=== PATIENT | female | born 1985 | race Caucasian/White ===

== ENCOUNTER 2018-05-28 21:32 | Outpatient (REF) | payer OTHER, SELFPAY ==
[2018-05-28 21:55] LABS: C-Reactive Protein 0.77 mg/dL (0.0-0.3)
== END 2018-05-28 21:52 ==
LOC: NCHCN 21:32
PROVIDERS: PCP Family Medicine; Visit Provider Nurse Practitioner Family
DX: N95.1 Menopausal and female climacteric states (principal); R61 Generalized hyperhidrosis
CPT/HCPCS: 86140

== ENCOUNTER 2021-02-22 12:38 | Outpatient (REF) | payer OTHER, SELFPAY ==
--- NOTE | 2021-02-22 10:30 | PAPFT_PTH ---
PATIENT: YeeAugust LOC: [facility] U#:[id number] AGE/SX: 35/F ROOM: RE02/22/[address]: Nini Mai : 1985 BED: DIS: 02/22/2021 SPEC #: [id number] RECD: 02/23/21 13:16 STATUS: GERMAINE RENandini #: [id number] TED: 02/22/21 10:[address]: Nini Mai DEPT: [facility] Cytology RECD BY: Brittanie Preston ENTERED: 02/23/21 13:17 SP TYPE: PAPFT OTHR DR: Aylin Gan Tissues: 1 - CX/ENDOCX FOR PAP SMEARS Procedures: PAP THIN PREP/[facility] Screening HPV DNA PROBE Comments: [id number]
--- OUTSIDE RECORDS SUMMARY | 2021-02-22 12:41 | XMS_ITS ---
:1985 Author Organization [facility] Address [address] [place] [address], [address] 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 [place], [place] and BV 6 16.10 [address] [facility] [address] [place] [address], [address] [place] [address] [facility] [address] [place] [address], [address] [place] [address] [facility] [address] [place] [address], [address], Aravind holin gland abscess [address] [place], [place] [address] [facility] [address] [place] [address], [address], Aravind holin gland abscess [address] [place], [place] [address] [facility] [address] Aug, [place] [address] 616.3 [facility] [address], [address], Aravind holin gland abscess [address] [place], [place] [address] [facility] [address] [facility], [address] Aug, Aravind holin gland abscess [address] [place], [place] [address] ; BV 616.10 and [place] [address] present v45.51 IMMUNIZATIONS No Known Immunizations SOCIAL HISTORY Qualifiers Date Current Smoker REASON FOR REFERRAL FUNCTIONAL STATUS PLAN OF CARE Activity Details Follow Up prn Reason: VITAL SIGNS Temperature 98.9 degrees Fahrenheit 2011-10-01 Height 5'2 stated in 2011-09-18 Weight 173 stated lbs 2011-09-18 Blood pressure systolic 145 2014-01-27 Blood pressure diastolic 90 2014-01-27 MEDICATIONS Medication Instructions Dosage Frequency Start End Date Duration Stat us Date Mirena Active Advil Active Flagyl 500 MG Orally Two times 1 tablet 12h Jan, 7 days Active a day 2013 Tylenol Not-Taking PROCEDURES Procedure Date Ordered Result Body Site ASSAY OF BODY FLUID ACIDITY January 27, 2014 Wet smear January 27, 2014 Wet smear Sep 03, 2011 Surgery for vulva lesion Sep 20, 2011 RESULTS No Results REASON FOR VISIT poss jose luis cyst, again, jose luis cyst may be back - see previous tele note, Had Marsupilization in [place] by Dr. Cowan 08/2011, Cyst has been coming and going most of this year, having diffculty urinating because of it, last night had a "gush" from the cyst. Sees a "little red ball" there when sitting on toilet, ever since marsupilization, has a brownish/yellow disch - increasing this past year, poss jose luis, poss. misstatement, e f/u 2wk - Marsupialization Jose Luis Cyst 09/20/11 - feeling much better, post-op marsupialization - "I'm not doing that great....not going as well as it should be...not healing, sore, red-ball", Also thinks she has a yeast infection from abx - taking two types given in hospital, Jose Luis abscess re-filled a few days after last visit - currently "hurts", Consult for bartholin cyst/abscess, leaking a lot brown, mucousy, malodorous d/c since yesterday. Now smaller, but uncomfortable., jose luis cyst drained 03/2011 Insurance Providers [facility] Member Patient Patient Patient Patient Patient Subscriber Subscriber Subscriber Group Insurance Plan Plan Plan Plan ID Relationship Address Phone Name Date of ID Name Date of No Type Insurance Insurance Insurance Coverage to Subscriber Address Phone Name Dates [place] [phone] [place] self August [id number] [facility] [address] [place] [address] [place] [address] MEDICAID [phone] MEDICAID self September 12 [id number] [facility] [address] [place] [address]
[2021-02-22 22:17] LABS: ALT 39 U/L (14-59); AST 24 U/L (15-37); Alkaline Phosphatase 72 U/L (46-116); Anion Gap 12.3 mmol/L (3-11); BUN 14 mg/dL (7-18); Bilirubin, Total 0.4 mg/dL (0.2-1.0); CO2 23.7 mmol/L (21.0-32.0); CREATININE 0.8 mg/dL (0.55-1.02); Calcium 9.3 mg/dL (8.5-10.1); Calculated LDL 90 mg/dL (<100); Chloride 106 mmol/L (98-107); Cholesterol 168 mg/dL (<200); Glucose 99 mg/dL (74-106); HDL Cholesterol 53 mg/dL (40-60); Potassium 4.4 mmol/L (3.5-5.1); Sodium 142 mmol/L (136-145); Total Protein 7.1 g/dL (6.4-8.2); Triglyceride 127 mg/dL (<150)
== END 2021-02-22 12:39 | disposition home or self-care (01) ==
LOC: NCHCN 12:38
PROVIDERS: PCP Family Medicine; Visit Provider Nurse Practitioner Family
DX: Z00.00 Encounter for general adult medical examination without abnormal findings (principal); Z13.220 Encounter for screening for lipoid disorders; Z12.4 Encounter for screening for malignant neoplasm of cervix; Z11.51 Encounter for screening for human papillomavirus (HPV); Z01.419 Encounter for gynecological examination (general) (routine) without abnormal findings
CPT/HCPCS: 80053; 80061; 88142; 87624

== ENCOUNTER 2022-03-13 13:47 | Outpatient (REF) | payer OTHER, SELFPAY ==
[2022-03-16 10:36] LABS: COVID-19 RT-PCR UVMMC Result Negative (Negative)
== END 2022-03-13 13:48 | disposition home or self-care (01) ==
LOC: NCHCN 13:47
PROVIDERS: PCP Family Medicine; Visit Provider Nurse Practitioner Family
DX: Z20.822 Contact with and (suspected) exposure to COVID-19 (principal); J06.9 Acute upper respiratory infection, unspecified
CPT/HCPCS: U0003

== ENCOUNTER 2022-05-09 17:39 | Outpatient (REF) | payer OTHER, SELFPAY ==
[2022-05-09 15:23] LABS: Abs Immature Grans 0.03 10^3/uL (0.0-0.06); Absolute Basophil Count 0.04 10^3/uL (0.0-0.2); Absolute Eosinophil Count 0.17 10^3/uL (0.0-0.7); Absolute Lymphocyte Count 1.55 10^3/uL (1.2-3.4); Absolute Monocyte Count 0.48 10^3/uL (0.1-0.8); Absolute Neutrophil Count 6.61 10^3/uL (1.2-6.7); Basophils % 0.5; Eosinophils % 1.9; HCT 45.4 % (36.0-46.0); HGB 15.4 g/dL (11.2-15.7); Immature Grans % 0.3; Lymphocytes % 17.5; MCH 32.3 pg (27.0-33.0); MCHC 33.9 % (32.0-36.0); MCV 95 fL (80-95); MPV 12.4 fL (8.0-11.0); Monocytes % 5.4; Neutrophils % 74.4; Platelet Count 227 10^3/uL (130-400); RBC 4.77 10^6/uL (3.93-5.22); RDW 12.5 % (11.7-14.6); RDW-SD 43.8 fL; WBC 8.88 10^3/uL (4.4-10.8)
[2022-05-09 16:33] LABS: ALT 22 U/L (14-59); AST 15 U/L (15-37); Albumin 3.8 g/dL (3.4-5.0); Alkaline Phosphatase 84 U/L (46-116); BUN 16 mg/dL (7-18); Bilirubin, Total 0.2 mg/dL (0.2-1.0); CREATININE 0.8 mg/dL (0.55-1.02); Calcium 9.3 mg/dL (8.5-10.1); Calculated LDL 92 mg/dL (<100); Chloride 104 mmol/L (98-107); Cholesterol 155 mg/dL (<200); Estimated GFR 96.66 (mL/min/1.73m2); Glucose 95 mg/dL (74-106); HDL Cholesterol 46 mg/dL (40-60); Potassium 4.7 mmol/L (3.5-5.1); Sodium 139 mmol/L (136-145); TSH (W/Ref FT4) 1.08 uIU/mL (0.36-3.74); Total Protein 7.2 g/dL (6.4-8.2); Triglyceride 88 mg/dL (<150)
[2022-05-09 16:53] LABS: Hemoglobin A1C 5.4 % (<5.7)
== END 2022-05-09 17:40 | disposition home or self-care (01) ==
LOC: NCHCN 17:39
PROVIDERS: PCP Family Medicine; Visit Provider Nurse Practitioner Family
DX: Z00.00 Encounter for general adult medical examination without abnormal findings (principal)
CPT/HCPCS: 80053; 80061; 83036; 84443; 85025

== ENCOUNTER 2022-10-31 09:06 | Outpatient (REF) | payer SELFPAY ==
[2022-10-31 14:34] LABS: Anion Gap 8.3 mmol/L (3-11); BUN 16 mg/dL (7-18); CO2 26.7 mmol/L (21.0-32.0); CREATININE 0.8 mg/dL (0.55-1.02); Calcium 9.4 mg/dL (8.5-10.1); Chloride 108 mmol/L (98-107); Estimated GFR 96.66 (mL/min/1.73m2); Glucose 106 mg/dL (74-106); Potassium 5.1 mmol/L (3.5-5.1); Sodium 143 mmol/L (136-145)
== END 2022-10-31 09:07 | disposition home or self-care (01) ==
LOC: NCHCN 09:06
PROVIDERS: PCP Family Medicine; Visit Provider Family Medicine
DX: Z00.00 Encounter for general adult medical examination without abnormal findings (principal); R03.0 Elevated blood-pressure reading, without diagnosis of hypertension; E66.8 Other obesity
CPT/HCPCS: 80048

== ENCOUNTER 2024-02-23 18:34 | Outpatient (REF) | payer BC, SELFPAY ==
[2024-02-23 15:35] LABS: Anion Gap 8.4 mmol/L (3-11); BUN 20 mg/dL (7-18); CO2 27.6 mmol/L (21.0-32.0); CREATININE 0.8 mg/dL (0.55-1.02); Calcium 9.3 mg/dL (8.5-10.1); Chloride 105 mmol/L (98-107); Estimated GFR 95.46 (mL/min/1.73m2); Glucose 115 mg/dL (74-106); Potassium 4.5 mmol/L (3.5-5.1); Sodium 141 mmol/L (136-145)
== END 2024-02-23 18:35 | disposition home or self-care (01) ==
LOC: NCHCN 18:34
PROVIDERS: PCP Family Medicine; Visit Provider Family Medicine
DX: E87.6 Hypokalemia (principal)
CPT/HCPCS: 80048

== ENCOUNTER 2024-08-05 08:56 | Outpatient (REF) | payer BC, SELFPAY ==
[2024-08-05 14:38] LABS: Abs Immature Grans 0.03 10^3/uL (0.0-0.06); Absolute Basophil Count 0.06 10^3/uL (0.0-0.2); Absolute Eosinophil Count 0.33 10^3/uL (0.0-0.7); Absolute Lymphocyte Count 1.97 10^3/uL (1.2-3.4); Absolute Neutrophil Count 6.58 10^3/uL (1.2-6.7); Basophils % 0.6 %; Eosinophils % 3.5 %; HCT 43.3 % (36.0-46.0); HGB 13.9 g/dL (11.2-15.7); Immature Grans % 0.3 %; MCH 31.4 pg (27.0-33.0); MCHC 32.1 % (32.0-36.0); MCV 98 fL (80-95); Monocytes % 4.3 %; Neutrophils % 70.3 %; Platelet Count 273 10^3/uL (130-400); RBC 4.43 10^6/uL (3.93-5.22); RDW 13.1 % (11.7-14.6); RDW-SD 46.9 fL; WBC 9.37 10^3/uL (4.4-10.8)
[2024-08-05 14:56] LABS: ALT 26 U/L (14-59); AST 27 U/L (15-37); Albumin 3.9 g/dL (3.4-5.0); Alkaline Phosphatase 73 U/L (46-116); Amylase 42 U/L (25-115); Anion Gap 8.2 mmol/L (3-11); BUN 14 mg/dL (7-18); Bilirubin, Total 0.23 mg/dL (0.2-1.0); CO2 25.8 mmol/L (21.0-32.0); Chloride 108 mmol/L (98-107); Estimated GFR 73.04 (mL/min/1.73m2); Glucose 102 mg/dL (74-106); Lipase 35 U/L (<78); Potassium 4.6 mmol/L (3.5-5.1); Sodium 142 mmol/L (136-145); Total Protein 7.2 g/dL (6.4-8.2)
[2024-08-05 15:17] LABS: Calcium 9.2 mg/dL (8.5-10.1)
== END 2024-08-05 08:57 | disposition home or self-care (01) ==
LOC: NCHCN 08:56
PROVIDERS: PCP Family Medicine; Visit Provider Family Medicine
DX: R10.9 Unspecified abdominal pain (principal)
CPT/HCPCS: 80053; 83690; 82150; 85025

== ENCOUNTER 2024-10-27 11:42 | Outpatient (REF) | payer OTHER, SELFPAY ==
[2024-10-27 15:56] LABS: HCT 47.1 % (36.0-46.0); HGB 15.2 g/dL (11.2-15.7); MCH 31.1 pg (27.0-33.0); MCHC 32.3 % (32.0-36.0); MCV 97 fL (80-95); MPV 12.9 fL (8.0-11.0); Platelet Count 266 10^3/uL (130-400); RBC 4.88 10^6/uL (3.93-5.22); RDW 12.2 % (11.7-14.6); RDW-SD 43.5 fL; WBC 8.81 10^3/uL (4.4-10.8)
[2024-10-27 17:42] LABS: ALT 36 U/L (14-59); AST 26 U/L (15-37); Albumin 4.6 g/dL (3.4-5.0); Alkaline Phosphatase 80 U/L (46-116); Amylase 48 U/L (25-115); BUN 15 mg/dL (7-18); Bilirubin, Total 0.31 mg/dL (0.2-1.0); CREATININE 1.1 mg/dL (0.55-1.02); Calcium 9.8 mg/dL (8.5-10.1); Chloride 105 mmol/L (98-107); Estimated GFR 65.14 (mL/min/1.73m2); Glucose 100 mg/dL (74-106); Lipase 30 U/L (<78); Potassium 4.6 mmol/L (3.5-5.1); Sodium 144 mmol/L (136-145); Total Protein 7.8 g/dL (6.4-8.2)
== END 2024-10-27 11:43 | disposition home or self-care (01) ==
LOC: NCHCN 11:42
PROVIDERS: PCP Family Medicine; Visit Provider Physician Assistant
DX: R10.9 Unspecified abdominal pain (principal)
CPT/HCPCS: 80053; 83690; 85027; 82150

== ENCOUNTER 2025-02-22 18:31 | Outpatient (REF) | payer OTHER, SELFPAY ==
[2025-02-22 21:19] LABS: ESR 6 mm/hr (0-20)
[2025-02-22 21:27] LABS: Abs Immature Grans 0.02 10^3/uL (0.0-0.06); HCT 42.1 % (36.0-46.0); HGB 13.7 g/dL (11.2-15.7); Immature Grans % 0.2 %; MCH 30.9 pg (27.0-33.0); MCHC 32.5 % (32.0-36.0); MCV 95 fL (80-95); MPV 12.1 fL (8.0-11.0); Platelet Count 277 10^3/uL (130-400); RBC 4.44 10^6/uL (3.93-5.22); RDW 12.8 % (11.7-14.6); RDW-SD 44.7 fL; WBC 8.58 10^3/uL (4.4-10.8)
[2025-02-22 21:32] LABS: C-Reactive Protein < 0.50 mg/dL (<or=0.5)
[2025-02-24 10:33] LABS: Lyme Ab w Rflx to Lyme Confirm Negative (Negative)
[2025-02-26 08:28] LABS: B. miyamotoi PCR Negative (Negative); Babesia divergens/MO-1 Negative (Negative); Ehrlichia muris eauclairensis Negative (Negative)
== END 2025-02-22 18:32 | disposition home or self-care (01) ==
LOC: NCHCN 18:31
PROVIDERS: PCP Family Medicine; Visit Provider Nurse Practitioner Family
DX: R29.810 Facial weakness (principal)
CPT/HCPCS: 85652; 87798; 85025; 86140; 86618

== ENCOUNTER 2025-03-28 16:25 | Outpatient (REF) | payer OTHER, SELFPAY ==
[2025-03-28 21:25] LABS: HCG Qual (Serum) Negative
[2025-03-28 21:44] LABS: TSH (W/Ref FT4) 2.49 uIU/mL (0.36-3.74)
[2025-03-30 12:21] LABS: Bacterial Vaginosis (BV) Positive (Negative); Candida glabrata Negative (Negative); Candida species group Negative (Negative)
== END 2025-03-28 16:26 | disposition home or self-care (01) ==
LOC: NCHCN 16:25
PROVIDERS: PCP Family Medicine; Visit Provider Family Medicine
DX: N94.6 Dysmenorrhea, unspecified (principal); R30.0 Dysuria; R82.89 Other abnormal findings on cytological and histological examination of urine
CPT/HCPCS: 81513; 87481; 87661; 84146; 84443; 84703; 87086

== ENCOUNTER 2025-03-29 16:16 | Outpatient (REF) | payer OTHER, SELFPAY ==
[2025-04-01 14:04] LABS: Helicobacter pylori Ag, Feces Negative (Negative)
== END 2025-03-29 16:17 | disposition home or self-care (01) ==
LOC: NCHCN 16:16
PROVIDERS: PCP Family Medicine; Referring Provider Family Medicine; Visit Provider Internal Medicine
DX: R10.13 Epigastric pain (principal)
CPT/HCPCS: 87338

== ENCOUNTER 2025-04-28 19:26 | Outpatient (REF) | payer OTHER, SELFPAY ==
[2025-04-28 21:13] LABS: HCT 42.2 % (36.0-46.0); HGB 13.7 g/dL (11.2-15.7); MCH 31.0 pg (27.0-33.0); MCHC 32.5 % (32.0-36.0); MCV 96 fL (80-95); MPV 11.9 fL (8.0-11.0); Platelet Count 269 10^3/uL (130-400); RBC 4.42 10^6/uL (3.93-5.22); RDW 13.0 % (11.7-14.6); RDW-SD 45.7 fL; WBC 9.49 10^3/uL (4.4-10.8)
[2025-04-28 21:15] LABS: ESR 7 mm/hr (0-20)
[2025-04-28 21:22] LABS: ALT 32 U/L (14-59); AST 25 U/L (15-37); Albumin 4.1 g/dL (3.4-5.0); Alkaline Phosphatase 66 U/L (46-116); Anion Gap 10.9 mmol/L (3-11); BUN 15 mg/dL (7-18); Bilirubin, Total 0.4 mg/dL (0.2-1.0); CO2 26.1 mmol/L (21.0-32.0); Calcium 9.2 mg/dL (8.5-10.1); Chloride 103 mmol/L (98-107); Estimated GFR 94.87 (mL/min/1.73m2); Glucose 95 mg/dL (74-106); Potassium 3.9 mmol/L (3.5-5.1); Sodium 140 mmol/L (136-145); Total Protein 7.5 g/dL (6.4-8.2)
[2025-04-28 21:23] LABS: C-Reactive Protein < 0.50 mg/dL (<or=0.5)
== END 2025-04-28 19:27 | disposition home or self-care (01) ==
LOC: NCHCN 19:26
PROVIDERS: PCP Family Medicine; Visit Provider Physician Assistant
DX: M25.50 Pain in unspecified joint (principal)
CPT/HCPCS: 80053; 85027; 85652; 86140; 86431

== ENCOUNTER 2025-07-27 11:04 | Outpatient (REF) | payer OTHER, SELFPAY ==
[2025-07-27 16:27] LABS: ESR 8 mm/hr (0-20)
[2025-07-27 16:47] LABS: ALT 22 U/L (10-49); AST 25 U/L (<34); Albumin 4.9 g/dL (3.2-5.0); Alkaline Phosphatase 73 U/L (46-116); Anion Gap 8.4 mmol/L (3-11); BUN 15 mg/dL (9-23); Bilirubin, Total 0.50 mg/dL (0.2-1.2); CO2 25.6 mmol/L (20.0-31.0); Calcium 9.4 mg/dL (8.3-10.6); Chloride 107 mmol/L (98-107); Glucose 92 mg/dL (74-106); Potassium 4.4 mmol/L (3.5-5.1); Sodium 141 mmol/L (136-145); Total Protein 7.7 g/dL (5.7-8.2)
[2025-07-27 22:46] LABS: CRP, High Sensitivity 3.38 mg/L (See Note)
[2025-07-28 10:29] LABS: Lyme Ab w Rflx to Lyme Confirm Negative (Negative)
[2025-07-30 13:27] LABS: B. miyamotoi PCR Negative (Negative); Babesia divergens/MO-1 Negative (Negative); Ehrlichia muris eauclairensis Negative (Negative)
== END 2025-07-27 11:05 | disposition home or self-care (01) ==
LOC: NCHCN 11:04
PROVIDERS: PCP Family Medicine; Visit Provider Family Medicine
DX: R29.898 Other symptoms and signs involving the musculoskeletal system (principal)
CPT/HCPCS: 80053; 85652; 86141; 87798; 86618